=== PATIENT | female | born 1985 | race Caucasian/White ===

== ENCOUNTER 2019-10-09 13:52 | Outpatient (CLI) | payer BC, SELFPAY ==
--- NOTE | ~2019-10-09 | XR_ITS ---
XR chest 2V DATE: 10/09/2019 14:02 INDICATION: Past smoker. Current vapor inhalation. TECHNIQUE: PA and lateral views COMPARISON: None FINDINGS: Normal heart size. No hilar or mediastinal enlargement. No pulmonary infiltrate or consolid ation, pleural effusion or pulmonary vascular congestion or pneumothorax is detected. Surgical clips, right upper quadrant, consistent with cholecystectomy Included skeletal structures are unremarkable. IMPRESSION: No active cardiopulmonary disease Status post cholecystectomy Reviewed, dictated and finalized at location A. TER APPRENTICE
== END 2019-10-09 13:53 | disposition home or self-care (01) ==
PROVIDERS: PCP Family Medicine; Visit Provider Family Medicine
DX: Z87.891 Personal history of nicotine dependence (principal); Z90.49 Acquired absence of other specified parts of digestive tract
CPT/HCPCS: 71046